=== PATIENT | female | born 1985 | race Caucasian/White ===

== ENCOUNTER → 2019-03-22 13:43 | Outpatient (CLI) | payer BC ==
[~2019-03-22 13:43] MED LIST: ALBUTEROL SULF8.5 GM INH; BUPROPION HCL75 MG PO; CIPRO500 MG PO; FLUTICASONE PRO16 GM NASAL; HYDROCHLOROTH12.5 M1 PO; IPRAT-ALBUT 0.5-3 ML UPD; MIRALAX17 GM PO; NORVASC2.5 MG PO; PRISTIQ100 MG PO; ULTRAM50 MG PO; VALIUM5 MG PO
== END | disposition home or self-care (01) ==
LOC: D.LABREF 13:43
PROVIDERS: ATTEND Urology
DX: N39.0 Urinary tract infection, site not specified (principal)

== ENCOUNTER 2019-03-31 06:25 | Day surgery (SDC) | payer BC ==
[2019-03-30 15:20] LABS: CALC OSMOLALITY 277 mosm/kg (275-300); CALCIUM 9.4 mg/dL (8.5-10.1); CARBON DIOXIDE 24.6 mmol/L (21.0-32.0); CHLORIDE - SERUM 103 mmol/L (98-107); CREATININE - SERUM 0.9 mg/dL (0.6-1.3); POTASSIUM - SERUM 3.8 mmol/L (3.5-5.1); SODIUM 140 mmol/L (136-145); UREA NITROGEN 14 mg/dL (7-18); eGFR NON AFRICAN AMERICAN 76 mL/min (90-120)
[2019-03-30 15:23] LABS: GLUCOSE 70 mg/dL (74-106)
[2019-03-30 15:24] LABS: HEMATOCRIT 43.6 % (36.0-48.0); HEMOGLOBIN 15.3 g/dL (12-16); MCH 29.5 pg (26.0-34.0); MCHC 35.1 g/dL (31.0-37.0); MCV 84.2 fL (80.0-100.0); MEAN PLATELET VOLUME 10.9 fL (7.4-10.4); RBC 5.18 10x6/uL (4.00-5.40); WBC 5.8 10x3/uL (4.8-10.8)
[~2019-03-31 06:25] MED LIST changes: -MIRALAX17 GM PO; -ULTRAM50 MG PO; -VALIUM5 MG PO
[2019-03-31 08:32] VITALS: BP 129/88; BMI 36.9
[2019-03-31 08:58] LABS: HCG URINE NEGATIVE (NEGATIVE)
[2019-03-31] MEDS ORDERED: VALIUM5 MG PO (10:35)
[2019-03-31] MEDS ORDERED: MIRALAX17 GM PO (10:35)
[2019-03-31] MEDS ORDERED: ULTRAM50 MG PO (10:38)
--- NOTE | 2019-03-31 11:15 | NUR ---
REC'D FROM RR. FAMILY AT BEDSIDE. [place] BROUGHT TO PATIENT. ORDERED A GLUTEN FREE FULL LIQUID DIET FOR PATIENT. VOIDED WHILE IN THE RR.
--- NOTE | 2019-03-31 11:45 | NUR ---
AMBULATED TO THE BATHROOM. VOIDED WITHOUT DIFFICULTY. CHOCOALATE ICE CREAM AND PUDDING BROUGHT TO PATIENT. FAMIOY AT BEDSIDE.
--- NOTE | 2019-03-31 12:15 | NUR ---
TOLERATED DIET. IV DC'D WITH CATHETER INTACT.
--- NOTE | 2019-03-31 12:20 | NUR ---
WRITTEN AND VERBAL DC INST. GIVEN TO PT. VERBALIZED UNDERSTANDING.
--- NOTE | 2019-03-31 12:35 | NUR ---
dc'd home with family via private VEHICLE. TAKEN TO VEHICLE BONI WC. STABLE AT TIME OF DC.
== END 2019-03-31 12:35 | disposition home or self-care (01) ==
LOC: D.OPS 06:25 → D.PAN 08:00 → D.OPS 08:15 → D.PAN 09:00 → D.OPS 09:00
PROVIDERS: Anesthesiology; ATTEND Surgery
DX: K64.5 Perianal venous thrombosis (principal); Z01.812 Encounter for preprocedural laboratory examination

== ENCOUNTER 2019-04-30 10:15 | Observation (INO) | payer BC ==
[2019-04-28 15:18] LABS: BASOPHILS 0.7 % (0-2); EOSINOPHILS 3.9 % (0-7); HEMATOCRIT 39.1 % (36.0-48.0); HEMOGLOBIN 13.5 g/dL (12-16); IMMATURE GRANULOCYTES 0.3 % (0-5); LYMPHOCYTES 26.4 % (15-50); MCHC 34.5 g/dL (31.0-37.0); MCV 83.9 fL (80.0-100.0); MEAN PLATELET VOLUME 11.1 fL (7.4-10.4); MONOCYTES 8.3 % (2-11); NEUTROPHILS 60.4 % (40-80); PLATELET COUNT 244 10x3/uL (130-400); RBC 4.66 10x6/uL (4.00-5.40); RDW 12.8 % (11.5-14.5); WBC 6.9 10x3/uL (4.8-10.8)
[2019-04-28 15:31] LABS: CALC OSMOLALITY 281 mosm/kg (275-300); CALCIUM 8.6 mg/dL (8.5-10.1); CARBON DIOXIDE 26.5 mmol/L (21.0-32.0); CHLORIDE - SERUM 104 mmol/L (98-107); CREATININE - SERUM 0.8 mg/dL (0.6-1.3); GLUCOSE 85 mg/dL (74-106); POTASSIUM - SERUM 3.6 mmol/L (3.5-5.1); SODIUM 142 mmol/L (136-145); UREA NITROGEN 13 mg/dL (7-18); eGFR NON AFRICAN AMERICAN 86 mL/min (90-120)
[~2019-04-30] VITALS: Ht 152.4 cm; Wt 85.9 kg
[2019-04-30] VITALS (11 sets, daily range): BP systolic 100–138; BP diastolic 42–98; Ht 152.4 cm; Wt 85.9 kg
[~2019-04-30 10:15] MED LIST changes: +MIRALAX17 GM PO; +ULTRAM50 MG PO; +VALIUM5 MG PO
[2019-04-30 10:44] LABS: HCG URINE NEGATIVE (NEGATIVE)
[2019-04-30] MEDS ORDERED: VITAMIN D5000 UNIT PO (10:50)
[2019-04-30] MEDS ORDERED: COLACE100 MG PO (10:50)
[2019-04-30] MEDS ORDERED: CYCLOBENZAPRINE10 MG PO (10:52)
--- NOTE | 2019-04-30 20:00 | NUR ---
PT ARRIVED ON UNIT VIA BED ESCORTED BY MARY SONG PACU NURSE. TEMP ELEVATED AT 100.4 DEGREES AND PULSE 128 AT THIS ASSESSMENT. DRESSINGS / PACKINGS INTACT WITH NO BLEEDING. IV IN LEFT HAND PATENT WITH LR INFUSING...CONTINUED AT 125 ML / HR PER ORDER.
--- NOTE | 2019-04-30 20:10 | NUR ---
STARTED PT USING INCINTIVE INSPIROMETER 10 TIMES PER HOUR. SCD'S PLACED ON BLE AND TURNED ON.
--- NOTE | 2019-04-30 20:22 | NUR ---
STARTED TRAIN SYSTEM OPERATOR W/ DILAUDID. PT TEACHING ON USE.
--- NOTE | 2019-04-30 20:30 | NUR ---
CALLED DR ELLINGTON TO REQUEST FLOMAX PER PT, AND TO REPORT ELEVATED TEMP. RECEIVED ORDER FOR FLOMAX QHS, XANAX 1 MG PO Q8 PRN, AND CBC W/DIFF TO BE DRAWN NOW.
--- NOTE | 2019-04-30 20:39 | NUR ---
HS MEDICATIONS GIVEN. GAVE SCHEDULED TYLENOL EARLY FOR ELEVATED TEMP.
--- NOTE | 2019-04-30 20:47 | OP ---
PATIENT NAME: SIVAN GARDNER MEDICAL RECORD: [id number] :84 LOCATION:D.MS [facility]argas2226 ADMISSION DATE:04/30/19 SURGEON: ROHIT RYAN MD DATE OF OPERATION: 04/30/2019 PRINCIPAL DIAGNOSES: 1. Intractable hemorrhoidal symptoms. 2. Third degree anal prolapse. POSTOPERATIVE DIAGNOSES: 1. Intractable hemorrhoidal symptoms. 2. Third degree anal prolapse. 3. Persistent prolapse of 2 hemorrhoidal bundles after the procedure for prolapse and hemorrhoids. PROCEDURE: 1. Procedure for prolapse and hemorrhoids. 2. ____ hemorrhoidectomy with closure. SURGEON: Rohti Ryan MD TILE SPRAYER: None. BLOOD LOSS: Less than 50 cc. ANESTHESIA: General. COMPLICATIONS: None. The risks, possible complications, and alternatives to the procedure were explained to the patient. She elects to proceed. The discussion specifically included, but was not limited to, bleeding requiring emergency reoperation, infection, recurrent hemorrhoidal symptoms. OPERATIVE COURSE: The patient was conveyed to the operating room electively on 04/30/2019. General anesthesia was induced by anesthesia staff. The patient was placed in lithotomy position. The buttocks were taped laterally. The buttocks and perineum were sterilely prepped and draped. A PPH dilator retractor was placed and the clear retractor was sutured to the surrounding anoderm with 2-0 silks. A mucosal pursestring suture of 2-0 Prolene was applied 1 cm cephalad to the clear retractor. The PPH stapling device was inserted with the anvils superior to the pursestring suture, which was then tightened and tied. The stapling device was engaged and then fired. There was a complete donut of lower rectal and hemorrhoidal tissue within the stapling device once it was removed. Bleeding along the anastomotic staple line was controlled with [id number] 3-0 Vicryls. At no time during this operation was there any apparent injury to the back wall of the vagina. The clear retractor was removed. There was still persistent prolapse of hemorrhoidal tissue at the 7 o'clock and 3 o'clock positions. At both sites, I placed a 3-0 Vicryl ligature at the apex of the internal hemorrhoids. Through the use of double curvilinear incisions, I excised the anoderm as well as the anal mucosa at both sites. The hemorrhoidectomies were conducted in a similar fashion at both sites. I swept down the sphincteric muscles and they were undamaged during the operation. The hemorrhoidectomies were performed utilizing the Harmonic scalpel. The anal mucosa was approximated with a running locking 3-0 Vicryl suture and then OPERATIVE REPORT [id number] SIVAN GARDNER continued out on to the anoderm with a running 3-0 Vicryl suture and then tied. I reinforced the anoderm suture line with multiple interrupted horizontal mattress 3-0 Vicryl Rapide sutures. A combination of sterile preparation and Marcaine were used to infiltrate the perianal tissues. Gelfoam was packed within the anus and lower rectum. A topical anesthetic cream was applied to the external hemorrhoids. Dr. Ellington then went about performing his gynecologic procedure. Once the patient was extubated in the recovery room, I saw her and her pain was controlled. TRANSINT:[id number] Voice Confirmation ID: [id number] DOCUMENT ID: [id number] ROHIT RYAN MD at 2047 CC: ESTRELLA ELLINGTON MD and JANE MCCORMICK MD [id number] DICTATION DATE: 04/30/191932 STEWARD/STEWARDESS LOUNGE: 04/30/192016 ADM IN [facility] [address] [place] [address]
[2019-04-30 20:53] LABS: BASOPHILS 0.1 % (0-2); EOSINOPHILS 0.1 % (0-7); HEMOGLOBIN 12.9 g/dL (12-16); IMMATURE GRANULOCYTES 0.4 % (0-5); MCH 29.1 pg (26.0-34.0); MCHC 34.9 g/dL (31.0-37.0); MCV 83.3 fL (80.0-100.0); MEAN PLATELET VOLUME 10.3 fL (7.4-10.4); MONOCYTES 1.9 % (2-11); NEUTROPHILS 92.5 % (40-80); PLATELET COUNT 230 10x3/uL (130-400); RBC 4.44 10x6/uL (4.00-5.40); RDW 12.9 % (11.5-14.5); WBC 13.1 10x3/uL (4.8-10.8)
--- NOTE | 2019-04-30 22:11 | NUR ---
GAVE XANAX 1 MG PO PER REQUEST. WILL CONTINUE TO MONITOR FOR NEEDS.
--- NOTE | 2019-04-30 22:43 | NUR ---
PT HAS HAD 360 ML OF WATER AND X2 POPSICLES SINCE ARRIVING ON FLOOR. NO C/O OF NAUSEA. URINE OUTPUT VERY GOOD WITH CLEAR YELLOW URINE IN VERDIN COLLECTION BAG.
[2019-05-01] VITALS (7 sets, daily range): BP systolic 82–131; BP diastolic 31–80
--- NOTE | 2019-05-01 00:41 | NUR ---
GAVE ZOFRAN 4 MG IVP PER REQUEST FOR NAUSEA. WILL CONTINUE TO MONITOR FOR NEEDS.
--- NOTE | 2019-05-01 07:55 | NUR ---
PT SITTING UP IN BED, EYES OPEN. NO C/O PAIN. DILAUDID TAPE MAKING MACHINE OPERATOR MANAGING PAIN. NO S/S OF ACUTE DISTRESS NOTED. PT UP WITH ASSIST. POD 1 LAP HYSTERECTOMY AND HEMRROID BANDING. SCD'S PRESENT. IV TO LEFT HAND, LR INFUSING @125ML/HR. VERDIN CATHETER PRESENT. PT DENIES ANYTHING FURTHER AT THIS TIME. CALL LIGHT IN REACH. WILL CONTINUE TO MONITOR.
--- NOTE | 2019-05-01 11:02 | NUR ---
I have reviewed this patient and I concur with the Shift Assessment completed by the Licensed Practical Nurse today this shift.
--- NOTE | 2019-05-01 13:52 | NUR ---
DISCONTINUED VERDIN PER PHYSICIAN ORDERS
[2019-05-01 13:54] LABS: BASOPHILS 0.2 % (0-2); EOSINOPHILS 0.7 % (0-7); HEMATOCRIT 34.6 % (36.0-48.0); HEMOGLOBIN 11.6 g/dL (12-16); IMMATURE GRANULOCYTES 0.3 % (0-5); LYMPHOCYTES 11.4 % (15-50); MCH 28.8 pg (26.0-34.0); MCHC 33.5 g/dL (31.0-37.0); MEAN PLATELET VOLUME 10.5 fL (7.4-10.4); MONOCYTES 10.2 % (2-11); NEUTROPHILS 77.2 % (40-80); PLATELET COUNT 221 10x3/uL (130-400); RBC 4.03 10x6/uL (4.00-5.40); RDW 13.1 % (11.5-14.5); WBC 11.1 10x3/uL (4.8-10.8)
[2019-05-01 13:56] LABS: MCV 85.9 fL (80.0-100.0)
--- NOTE | 2019-05-01 18:54 | NUR ---
PT RESTING IN BED, C/O PAIN. UNABLE TO GIVE PAIN MEDS AT THIS TIME. GAVE OXY 10 @ 1730. NO S/S OF ACUTE DISTRESS NOTED. PT STATES SHE NEEDS A STOOL SOFTNER OR MIRALAX. WILL NOTIFY PHYSICIAN. PT DENIES ANYTHING FURTHER AT THIS TIME. CALL LIGHT IN REACH. AT BEDSIDE. WILL CONTINUE TO MONITOR.
--- NOTE | 2019-05-01 19:00 | NUR ---
REPORT RECEIVED AND CARE OF PT ASSUMED. PT AMBULATING IN THE HALLWAY WITH HER SPOUSE AT THIS TIME. IV SALINE LOCKED. WILL MONITOR FOR NEEDS.
--- NOTE | 2019-05-01 20:30 | NUR ---
PT AMBULATING IN THE HALLWAY AT THIS TIME. REPORTS URINATING WITHOUT DIFFICULTY AND PASSING GAS.
--- NOTE | 2019-05-01 21:12 | NUR ---
HS MEDICATIONS GIVEN TO INCLUDE AMBIEN 10 MG PO PER REQUEST, PER PRN ORDER. WILL CONTINUE TO MONITOR FOR NEEDS.
[2019-05-02 04:36] VITALS: BP 130/86
--- NOTE | 2019-05-02 08:07 | NUR ---
PT UP WALKING AROUND WITH SPOUSE. ASKED FOR ICE PACK AND STATED SHE SHOULD BE GOING HOME TODAY. CONTINUE WITH PLAN OF CARE
[2019-05-02 08:51] VITALS: BP 135/91
--- NOTE | 2019-05-02 10:19 | NUR ---
PT UP ADLIB. PT SPOUSE AT BEDSIDE ASSISTING WITH PERSONAL NEEDS. PT IS PENDING DC NO OTHER NEEDS VOICED, CONTINUE WITH PLAN OF CARE
[2019-05-02] MEDS ORDERED: VALIUM5 MG PO (11:56)
[2019-05-02] MEDS ORDERED: IBUPROFEN800 MG PO (11:57)
[2019-05-02] MEDS ORDERED: PERCOCET 7.5/321 TAB PO (11:58)
[2019-05-02] MEDS ORDERED: PHENERGAN25 M1 PO (12:28)
== END 2019-05-02 12:59 | disposition home or self-care (01) ==
LOC: D.OPS 10:15 → D.PAN 12:00 → D.OPS 12:00 → D.MS 19:50 → OBSVTIME 19:50 → D.MS 05-02 12:59
PROVIDERS: Obstetrics & Gynecology; ADMIT Obstetrics & Gynecology; ATTEND Obstetrics & Gynecology
DX: K64.2 Third degree hemorrhoids (principal); N94.6 Dysmenorrhea, unspecified; N81.6 Rectocele; N92.0 Excessive and frequent menstruation with regular cycle

== ENCOUNTER 2019-05-22 00:23 | Observation (INO) | payer BC ==
[~2019-05-22 00:23] MED LIST changes: +COLACE100 MG PO; +CYCLOBENZAPRINE10 MG PO; +IBUPROFEN800 MG PO; +PERCOCET 7.5/321 TAB PO; +PHENERGAN25 M1 PO; +VITAMIN D5000 UNIT PO
--- NOTE | 2019-05-22 00:50 | NUR ---
RECEIVED PT TO FLOOR VIA WHEELCHAIR. BRIGHT RED BLOOD WITH HEAVY CLOTS COMING FROM VAGINA. ASSISTED PT TO GET CLEANED UP. STARTING PAD COUNT. IV STARTED TO LEFT AC. PT C/O LOWER ABDOMINAL PAIN 8/[address] HANCOCK FOR ORDERS. GAVE TORADOL AND ZOFRAN IV PUSH. CONSENTS OBTAINED FOR EXAM UNDER ANESTHESIA. PRE OP MEDS GIVEN AND ALLERGY BAND ON. PT LEAVING UNIT FOR OR.
[2019-05-22] MEDS ORDERED: PRISTIQ50 MG PO (01:00)
[2019-05-22] MEDS ORDERED: HYDROCODON-ACE1 EAC7 PO (01:03)
[2019-05-22 01:04] LABS: BASOPHILS 0.2 % (0-2); EOSINOPHILS 1.2 % (0-7); HEMATOCRIT 36.5 % (36.0-48.0); HEMOGLOBIN 12.4 g/dL (12-16); IMMATURE GRANULOCYTES 0.3 % (0-5); LYMPHOCYTES 14.6 % (15-50); MCH 29.1 pg (26.0-34.0); MCV 85.7 fL (80.0-100.0); MEAN PLATELET VOLUME 10.1 fL (7.4-10.4); MONOCYTES 6.3 % (2-11); NEUTROPHILS 77.4 % (40-80); PLATELET COUNT 356 10x3/uL (130-400); RBC 4.26 10x6/uL (4.00-5.40); RDW 13.8 % (11.5-14.5); WBC 14.5 10x3/uL (4.8-10.8)
[2019-05-22] MEDS ORDERED: THEREMS-M1 TAB PO (01:05)
[2019-05-22 02:47] VITALS: BP 126/85; BMI 37.1
[2019-05-22 04:55] VITALS: BP 128/77
--- NOTE | 2019-05-22 04:55 | NUR ---
RECEIVED PT BACK TO ROOM FROM RECOVERY. POST OP STABILITY VITALS WNL. PT ON 2L/NC. VERDIN CATH PLACED IN OR. PT SLIGHTLY DROWSY RATES PAIN 7/10, STATES PAIN IS DECREASING. PLACED SCD'S ON PT. IV FLUIDS INFUSING. NO OTHER NEEDS. WILL CONTINUE TO MONITOR.
--- NOTE | 2019-05-22 07:57 | OP ---
PATIENT NAME: SIVAN GARDNER MEDICAL RECORD: [id number] :84 LOCATION:D.MS Vargas2215 ADMISSION DATE:05/22/19 SURGEON: ESTRELLA ELLINGTON MD DATE OF OPERATION: 05/22/2019 PREOPERATIVE DIAGNOSIS: Vaginal bleeding. POSTOPERATIVE DIAGNOSES: 1. Breakdown of vaginal incision. 2. Vaginal bleeding. PROCEDURE: Repair of vaginal colpotomy. SURGEON: Estrella Ellington MD BEE BREEDER: Rahat Puga. ANESTHETIC: General. FINDINGS: At the time of exam under anesthesia, the cervix is noted to be dilated with a large old clot present. There is bleeding from previous colpotomy and the stitch is torn free of this. The tissue was necrotic posteriorly and devitalized. SPECIMENS REMOVED: None applicable. ESTIMATED BLOOD LOSS: Less than or equal to 150 cc. FLUIDS: 700 cc lactated Ringer's. URINE OUTPUT: 50 of clear urine. COMPLICATIONS: None. DRAIN: Schaefer to gravity. INDICATIONS: The patient is a 34-year-old female who is status post subtotal hysterectomy and posterior repair with hemorrhoidectomy 2 weeks out. The patient began increasing her activity level and developed vaginal bleeding earlier in the day. The patient's bleeding increased throughout the evening and presents to the ER with passing large clots. DESCRIPTION OF PROCEDURE: After informed consent was assured, the patient was taken to the operating room where anesthetic was obtained. The patient was placed in Yellofin stirrups and prepped and draped. An operative speculum was introduced in the vagina and the cervix visualized. Previous side of posterior colpotomy was placed into full view. Stitches noted to be torn from this. There was active bleeding from the site. The posterior cervix is necrotic. This is removed. Gelfoam was placed in the defect and the defect was closed with #1 chromic in a running locked fashion. After closure of the colpotomy and reapproximation of the posterior cervical tissue, the vagina is packed with Kerlix covered with Premarin cream. The Schaefer catheter started. Sponge count was correct times 2. TRANSINT:[id number] Voice Confirmation ID: [id number] DOCUMENT ID: [id number] OPERATIVE REPORT [id number] SIVAN GARDNER ESTRELLA ELLINGTON MD at 0757 CC: [id number] DICTATION DATE: 05/22/19 0358 [place] OPERATOR: 05/22/19 0504 ADM IN [facility] [address] [facility]
[2019-05-22 09:12] LABS: BASOPHILS 0.1 % (0-2); EOSINOPHILS 0 % (0-7); HEMATOCRIT 32.3 % (36.0-48.0); HEMOGLOBIN 10.8 g/dL (12-16); IMMATURE GRANULOCYTES 0.5 % (0-5); LYMPHOCYTES 4.8 % (15-50); MCH 28.9 pg (26.0-34.0); MCHC 33.4 g/dL (31.0-37.0); MCV 86.4 fL (80.0-100.0); MONOCYTES 2.4 % (2-11); NEUTROPHILS 92.2 % (40-80); PLATELET COUNT 289 10x3/uL (130-400); RBC 3.74 10x6/uL (4.00-5.40); RDW 13.9 % (11.5-14.5); WBC 16.5 10x3/uL (4.8-10.8)
--- NOTE | 2019-05-22 10:19 | NUR ---
PT LYING IN BED WITH SPOUSE AT [facility], PT STATED PAIN IS AT A 10. ADMINISTERED 2MG PRN PAIN MEDICATION. PT REQUESTED TO HAVE ANXIETY MEDS, CALLED DR ELLINGTON AND RECEIVED ORDER FOR XANAX. O OTHER NEEDS VOICED, CONTINUE WITH PLAN OF CARE
[2019-05-22 12:59] VITALS: BP 125/70
[2019-05-22 16:28] VITALS: BP 113/69
--- NOTE | 2019-05-22 18:30 | NUR ---
I have reviewed this patient and I concur with the Shift Assessment completed by the Licensed Practical Nurse today this shift.
[2019-05-22 20:00] VITALS: BP 144/88
[2019-05-23] VITALS: BP 131/70
--- NOTE | 2019-05-23 03:00 | NUR ---
I have reviewed this patient and I concur with the Shift Assessment completed by the Licensed Practical Nurse today this shift.
--- NOTE | 2019-05-23 03:14 | NUR ---
RESITED PT IV PER PT REQUEST. ATTEMPTS TIMES ONE. 20G RT FA. WILL CONTINUE FLUIDS.
[2019-05-23 04:00] VITALS: BP 130/65
[2019-05-23 09:19] VITALS: BP 145/70
[2019-05-23 12:55] VITALS: BP 125/77
[2019-05-23 17:28] VITALS: BP 129/72
[2019-05-23 20:00] VITALS: BP 132/87
--- NOTE | 2019-05-23 20:00 | NUR ---
ALERT SITTING UP IN BEDFAMILY AT BEDSIDE, REPORTS MINIMAL VAGINAL BLEEDING TODAY, UP AMBULATING IN HALLWAY, SEE SHIFT ASSESSMENT, CALL MICHAEL AQUINO
--- NOTE | 2019-05-24 07:02 | NUR ---
PREOP MEDS GIVEN ORDERED, TO OR VIA BED
--- NOTE | 2019-05-24 09:19 | NUR ---
X-RAY TAKEN POST OP FOR INSTRUMENT, SPONGES NEEDLES AND BLADES CORRECT, X-RAY TAKEN AND READ NO SPONGES, NEEDLES ,BLADES, OR INSTRUMENTS SEEN PER RADIOLOGIST, DR HAILE LLOYDIEDJESUS.
--- NOTE | 2019-05-24 10:43 | NUR ---
LATE ENTRY-PATIENT PUT UP IN LITHOTOMY AFTER START ALL AREAS PADDED AND SECURED WITH NO IMPINGEMENTS, DR ELLINGTON ASSISTING WITH POSITION, JESUS.
--- NOTE | 2019-05-24 10:45 | NUR ---
AT 1020 CONSULTED ANESTHESIA REGARDING PAIN LEVEL OF 8/10 AFTER RECEIVING DEMEROL 100MG. VERBAL ORDERS RECEIVED FROM DR. HOLLAND TO ADMINISTER DILAUDID ORDERED. ORDERS RECEIVED AND IMPLEMENTED. WILL CONTINUE TO MONITOR.
[2019-05-24 11:35] VITALS: BP 139/86
--- NOTE | 2019-05-24 11:50 | NUR ---
DR ELLINGTON CALLS UNIT REQUESTING PATIENT BE TRANSFERED TO FOR REMAINDER OF STAY IN HOSPITAL. THIS RN CALLS MS FLOOR TO INFORM STAFF OF DR ELLINGTON'S ORDER. PRIMARY NURSE TO RETURN CALL TO GIVE REPORT AND TRANSPORT PATIENT.
--- NOTE | 2019-05-24 12:33 | NUR ---
REC'D PT AA&O X 4 TO ROOM 1222. THIS RN AND A ADRIANO RN TO BEDSIDE. PT ABLE TO REPORT THE PROCEDURE THAT SHE HAD TODAY. CERVIX REMOVED PER DR ELLINGTON. PAIN ASSESSED. PT CURRENTLY RATES PAIN 6-06/09. PT REPORTS SHE HAS JUST RECENTLY MEDICATED FOR HER PAIN. PT HAS A SALINE LOCK TO LEFT HAND. VERDIN CATH IN PLACE W/APPROX 200ML NOTED IN BAG.
--- NOTE | 2019-05-24 12:44 | NUR ---
housesupervisor called for suicide assessment by behavioral health nurse. this rn to remain at bedside. pt aa&o x in bed. pt reports thoughts of suicide was more than 10years ago. pt doesn't currently have any suicide thoughts. pt currently has 2 supportive parents at bedside.
--- NOTE | 2019-05-24 12:55 | NUR ---
THIS RN REMAINS AT BEDSIDE TO MONITOR PATIENT UNTIL BEHAVIORAL HEALTH NURSE ARRIVES FOR ASSESSMENT. PT AA&O AND AND TALKATIVE. PT IS CHEERFUL.
--- NOTE | 2019-05-24 13:00 | NUR ---
RAYNA, BEHAVIORAL HEALTH NURSE AT BEDSIDE AT THISTIME.
--- NOTE | 2019-05-24 13:00 | NUR ---
PT'S NURSE PRESENT UPON ARRIVAL FOR SUICIDE ASSESSMENT. DR. ASHLEY NOTIFIED AND REVIEWED PT'S BEHAVIOR AND ASSESSMENT RESULTS. PT IS A LOW RISK DR. ASHLEY. DR. ASHLEY STATED TO GIVE RESOURCES TO PT AT TIME OF DISCHARGE. NO FURTHER ORDERS AT THIS TIME. RESOURCES REVIEWED WITH PT AND SHE VERBALIZED UNDERSTANDING.
--- NOTE | 2019-05-24 13:25 | NUR ---
PT INFORMED THIS NURSE OF HOME MEDICATIONS NEEDED. PRISTIQ 150MG PO DAILY AND WELLBUTRIN 225MG PO BID. THIS NURSE NOTIFIED PT'S NURSE SUZIE HERNANDEZ OF MEDICATIONS REPORTED.
[2019-05-24 15:03] LABS: CALC OSMOLALITY 282 mosm/kg (275-300); CARBON DIOXIDE 28.1 mmol/L (21.0-32.0); CHLORIDE - SERUM 106 mmol/L (98-107); CREATININE - SERUM 0.9 mg/dL (0.6-1.3); GLUCOSE 126 mg/dL (74-106); POTASSIUM - SERUM 3.4 mmol/L (3.5-5.1); SODIUM 142 mmol/L (136-145); UREA NITROGEN 6 mg/dL (7-18); eGFR NON AFRICAN AMERICAN 75 mL/min (90-120)
--- NOTE | 2019-05-24 15:15 | NUR ---
dr. calzada notified of pt's home medication of pristiq, and wellbutrin. telephone order received to add to medication list to start now. spoke with ivy in the pharmacy, medications ordered. pt notified.
[2019-05-24 15:17] LABS: BASOPHILS 0.1 % (0-2); EOSINOPHILS 0 % (0-7); HEMATOCRIT 25.5 % (36.0-48.0); HEMOGLOBIN 8.3 g/dL (12-16); IMMATURE GRANULOCYTES 0.4 % (0-5); LYMPHOCYTES 5.6 % (15-50); MCH 28.5 pg (26.0-34.0); MCHC 32.5 g/dL (31.0-37.0); MCV 87.6 fL (80.0-100.0); MEAN PLATELET VOLUME 9.8 fL (7.4-10.4); MONOCYTES 5.4 % (2-11); NEUTROPHILS 88.5 % (40-80); PLATELET COUNT 243 10x3/uL (130-400); RBC 2.91 10x6/uL (4.00-5.40); RDW 14.1 % (11.5-14.5); WBC 15.2 10x3/uL (4.8-10.8)
--- NOTE | 2019-05-24 15:20 | NUR ---
verbal order received from dr. calzada to stop levaquin as md will change iv antibiotics to clindamycin, and gentamycin, and pt to remain on flagyl iv.
--- NOTE | 2019-05-24 15:24 | OP ---
PATIENT NAME: SIVAN GARDNER MEDICAL RECORD: [id number] :84 [facility] ADMISSION DATE:05/22/19 SURGEON: AVI ELLINGTON MD DATE OF OPERATION: 05/24/2019 PREOPERATIVE DIAGNOSIS: Vaginal bleeding, status post hysterectomy. POSTOPERATIVE DIAGNOSES: 1. Vaginal bleeding, status post hysterectomy. 2. Devascularized cervical tissue. SURGEON: Avi Ellington MD SOLAR PROJECT MANAGER: Neno Tirado ENTERER: Dayan Garcia ANESTHESIOLOGIST: Prateek Kerns MD ANESTHETIC: General. FINDINGS: The vaginal cervix appeared unremarkable. There was some active bleeding noted, but not heavy. At the time of ex lap, necrotic tissue encountered at the cervical stump. Rectum was inflamed as well as bladder. SPECIMEN REMOVED: Portions of cervix. SPECIMEN DISPOSITION: Pathology. ESTIMATED BLOOD LOSS: Less than or equal to 150 cc. FLUIDS: One liter lactated Ringer's. URINE OUTPUT: 110 cc of clear urine. COMPLICATION: None. DRAIN: Schaefer to gravity. INDICATION: The patient is a 34-year-old female status post subtotal hysterectomy, posterior repair, and hemorrhoidectomy. The patient was taken to the operating room 48 hours ago for continued bleeding and a necrotic tissue debrided from the cervix and this defect closed. The patient has had continued bleeding, although not heavy over the last 48 hours. The patient is concerned about heavy bleeding in the future and requests removal of the cervix. DESCRIPTION OF PROCEDURE: After informed consent was assured, the patient was taken to the operating room, where anesthetic was obtained. The patient was prepped and draped supine on the table. An incision was made over the old Pfannenstiel scar and taken down to the underlying layer of the fascia, which was opened and extended laterally. Rectus bellies were dissected free of the fascia and then in the midline. The bowel was swept free of the pelvis and some adhesions of the bowel and the bladder to the cervical stump was encountered and these were taken down. The cervical stump was inspected and was inflamed with abundance of necrotic tissue. The decision was made to place the OPERATIVE REPORT [id number] SIVAN GARDNER patient in [facility] and perform part of the procedure from below. During manipulation of the table, the OR setup was flipped and the instruments contaminated. Another setup was organized as the legs were positioned and draped. Due to contamination of the instruments and a second setup being brought in before count could be performed, an x-ray was performed at the end of this procedure. After the legs were positioned, a weighted speculum was introduced in the vagina and the cervix was visualized. Minimal bleeding was noted. There was viable tissue anteriorly and this was grasped with Palomares tenaculum. Using a Bovie cautery, the bladder mucosa was mobilized over the cervical stump. The anterior space was entered easily with the blunt finger, opening the prior repair from the previous debridement. A stump on the patient's left hand side was developed and clamped with a Mauricio clamp. This was removed with scissors and a ppcd-sun-gjc stitch was applied for hemostasis. This was repeated on the contralateral side with what remained of the right anterior portion of the cervix. After it was removed, interrupted [id number]-[id number] stitches were used to reapproximate the vaginal cuff. Some bleeding was noted from the mucosal edges and the vagina was packed with a sponge. Attention was directed to the abdomen, where the necrotic tissue was debrided and the pelvis was irrigated and irrigant was removed. Adequate hemostasis has been achieved. Antibiotic irrigant was used to irrigate the pelvis. The irrigant was removed and the fascia was closed in a running fashion with looped PDS. Subcutaneous tissue was inspected and skin was reapproximated with mirian. The sponge was removed from the vagina and adequate hemostasis has been achieved at the vaginal cuff. Monsel's solution was applied. Sponge count was correct times 2. X-ray revealed no retained instruments. TRANSINT:[id number] Voice Confirmation ID: [id number] DOCUMENT ID: [id number] AVI ELLINGTON MD at 1524 CC: [id number] DICTATION DATE: 05/24/19 0935 AUTO BRAKE MECHANIC: 05/24/19 1245 [facility] IN [facility] [address] [place] [address]
--- NOTE | 2019-05-24 16:24 | NUR ---
pt tearful, and requests pain medication, demerol 50 mg sivp given. see emar for all meds adm by this rn. pink pad changed, pt does not like the blue chux. pt repositions self in bed to right lateral side. pt does coughing and deep breathing exercises well. pt's mother at bedside. sr up x2, call light and phone within reach.
--- NOTE | 2019-05-24 16:42 | NUR ---
clindamycin 900 mg ivpb adm, see emar.
--- NOTE | 2019-05-24 18:00 | NUR ---
pt requests to get up to the bathroom to sit on the toilet, to "try and pass some gas, i promise i won't strain". pt assisted up, gait slow and steady. ruth cath continues to drain light yellow urine. pt then ambulatory in hallway, pt smiling and states "i really do feel so much better". pt's mother walking with her daughter.
--- NOTE | 2019-05-24 18:20 | NUR ---
pt back to room, back to bed. sr up x2, call light and phone within reach. family at bedside.
--- NOTE | 2019-05-24 19:45 | NUR ---
PM ROUNDS MADE, PT RESTING, INFORMED PT THAT I WILL BE BACK SHORLTY TO DO ASSESSMENT, PT VERBALIZES UNDERSTANDING, REPORTS THAT PREVIOUS NURSE WAS IN AND ADM TORADOL, PT DENIES NEEDS AT THIS TIME, PT'S MOM AT BEDSIDE
[2019-05-24 20:20] VITALS: BP 139/93
--- NOTE | 2019-05-24 20:40 | NUR ---
ASSESSMENT PER FLOW SHEET, VS OBTAINED PER ODESSA BEE RN, IV IN RIGHT WRIST INTACT WITH NO REDNESS OR EDEMA INFUSING LR AT 125 ML/HR, BIKINI LINE INC WITH LARGE DRESSING CDI WITH NO DRAINAGE NOTED, FRESH ICE PACK TO ABD, PT DENIES FLATUS, VERDIN CATH INTACT DRAINING CLEAR YELLOW URINE, SCD'S ON AND WORKING PROPERLY, PT C/O INC PAIN, WILL ADM PAIN MED WHEN DUE, SEE EMAR, PT REQUESTED AND SERVED POPSICLE, DENIES FURTHER NEEDS, PT'S MOM AT BEDSIDE
--- NOTE | 2019-05-24 21:39 | NUR ---
ADM SOME 2100 MEDS PER MD ORDERS, SEE EMAR, INFORMED PT THAT I WILL ADM THE OTHERS WHEN RECEIVED, PT VERBALIZES UNDERSTANDING, PT'S MOM AT BEDSIDE
--- NOTE | 2019-05-24 21:55 | NUR ---
DR DOSS PAGED
--- NOTE | 2019-05-24 21:57 | NUR ---
DR DOSS CALLS UNIT, REPORT OF PT'S H&H FROM EARLIER TODAY, ORDERS TO TRANSFUSE 1 UNIT OF PRBC AND REPEAT CBC IN AM, ORDERS READ BACK AND VERIFIED
--- NOTE | 2019-05-24 22:06 | NUR ---
RECEIVED OTHER MEDS FROM PHARMACY, ADM, PT INFORMED OF BLOOD TRANSFUSION, PT GOT SLIGHTLY TEARY EYED, REASSURED PT, INFORMED PT THAT SOMEONE WILL COME AND START ANOTHER IV, PT VERBALIZES UNDERSTANDING, CONSENT ON CHART
--- NOTE | 2019-05-24 22:15 | NUR ---
SPOKE TO NELLY PERDOMO LAB NURSE, SHE INFORMED ME THAT THE BLOOD CONSENT IS GOOD FOR 3 DAYS
--- NOTE | 2019-05-24 22:30 | NUR ---
GINA MCKENNA RN WILL COME TO START NEW IV
--- NOTE | 2019-05-24 22:50 | NUR ---
BRET THOMPSON RN TO ROOM FOR IV START, UNABLE TO START IV X 2 ATTEMPTS, WILL NOTIFY ICU
--- NOTE | 2019-05-24 23:10 | NUR ---
SPOKE TO MIKIE RN IN ICU, HE REPORTS THAT HE WILL SEND SOMEONE DOWN TO ATTEMPT IV
--- NOTE | 2019-05-24 23:48 | NUR ---
CALLED ICU, SPOKE TO NURSE UP THERE, SHE INFORMED ME THAT THEY WILL NOT HAVE TIME TO START AN IV DUE TO A RAPID RESPONS
--- NOTE | 2019-05-24 23:52 | NUR ---
CALLED ER, NURSE REPORTS THAT SHE WILL SEND SOMEONE DOWN TO START IV
[2019-05-25] VITALS (7 sets, daily range): BP systolic 101–133; BP diastolic 66–88
--- NOTE | 2019-05-25 00:03 | NUR ---
CLEOCIN HUNG PER MD ORDERS, SEE EMAR
--- NOTE | 2019-05-25 00:20 | NUR ---
GINA MCKENNA RN REPORTS THAT NURSE FROM ED WILL NOT BE ABLE TO COME AND ATTEMPT IV, GINA MCKENNA RN TO ROOM TO SEE IF SHE CAN START IV, GINA MCKENNA RN REPORTS THAT SHE WILL NOT BE ABLE TO START IV, SHE WILL CALL CODER
--- NOTE | 2019-05-25 00:50 | NUR ---
CALLED CORINA RECIO RNVP SOFTWARE SUPPORT, SHE ASKS ME TO SEE IF MARY TONG FROM [facility] WILL COME
--- NOTE | 2019-05-25 01:02 | NUR ---
MARY TONG FROM [facility] TO ROOM
--- NOTE | 2019-05-25 01:12 | NUR ---
MARY TONG FROM [facility] REPORTS THAT SHE DOES NOT SEE ANY PLACE TO START AN IV
--- NOTE | 2019-05-25 01:30 | NUR ---
SPOKE TO PT, WILL ADM PAIN MED AT 0200, THEN INITIATE PRBC
--- NOTE | 2019-05-25 02:02 | NUR ---
ADM DEMEROL PER MD ORDERS, SEE EMAR
--- NOTE | 2019-05-25 02:06 | NUR ---
GINA MCKENNA RN CHANGED OUT LR TO NS FOR BLOOD INFUSION
--- NOTE | 2019-05-25 02:15 | NUR ---
THIS RN AND GINA MCKENNA RN VERIFY BLOOD, PRBC STARTED, GINA MCKENNA RN STAYS IN ROOM AT THIS TIME
--- NOTE | 2019-05-25 02:20 | NUR ---
GINA MCKENNA, RN ADM TAWANNA PER MD ORDERS, SEE EMAR
--- NOTE | 2019-05-25 02:45 | NUR ---
THIS RN TO ROOM, VS CONTINUE, PT RESTING, PT'S MOM AT BEDSIDE
--- NOTE | 2019-05-25 03:15 | NUR ---
PT RESTING WITH EYES CLOSED, RESP QUIET, NO DISTRESS NOTED, LEFT UNDISTURBED AT THIS TIME, PT'S MOM AT BEDSIDE
--- NOTE | 2019-05-25 04:00 | NUR ---
PT RESTING WITH EYES CLOSED, RESP QUIET, NO DISTRESS NOTED, LEFT UNDISTURBED AT THIS TIME, PT'S MOM ASLEEP AT BEDSIDE
--- NOTE | 2019-05-25 04:45 | NUR ---
PRBC FINISHED INFUSING, NS RESTARTED TO FLUSH OUT LINE
--- NOTE | 2019-05-25 04:56 | NUR ---
NS STOPPED, LR RESTARTED PER MD ORDERS, SEE EMAR, PT C/O INC PAIN, ADM DEMEROL PER MD ORDERS, SEE EMAR
--- NOTE | 2019-05-25 05:38 | NUR ---
PT AMB IN CABRAL, GAIT STEADY, PT'S MOM AT SIDE, PT BACK TO BED, REPORTS THAT PAIN IS NOT ANY BETTER AND REQUESTS NORCO, ADM NORCO, MYLICON, AND HUNG CLINDAMYCIN PER MD ORDERS, SEE EMAR
--- NOTE | 2019-05-25 06:45 | NUR ---
PT RESTING WITH EYES CLOSED, RESP QUIET, NO DISTRESS NOTED, LEFT UNDISTURBED AT THIS TIME, PT'S MOM ASLEEP AT BEDSIDE
--- NOTE | 2019-05-25 07:00 | NUR ---
SHIFT REPORT TO DAY SHIFT
--- NOTE | 2019-05-25 07:25 | NUR ---
dr. calzada to room, plan of care explained to pt by .
[2019-05-25 07:45] LABS: BASOPHILS 0.2 % (0-2); EOSINOPHILS 0.8 % (0-7); HEMATOCRIT 28.7 % (36.0-48.0); HEMOGLOBIN 9.5 g/dL (12-16); IMMATURE GRANULOCYTES 0.4 % (0-5); LYMPHOCYTES 15.4 % (15-50); MCH 29.1 pg (26.0-34.0); MCHC 33.1 g/dL (31.0-37.0); MCV 87.8 fL (80.0-100.0); MEAN PLATELET VOLUME 9.5 fL (7.4-10.4); NEUTROPHILS 74.2 % (40-80); PLATELET COUNT 218 10x3/uL (130-400); RBC 3.27 10x6/uL (4.00-5.40); RDW 14.4 % (11.5-14.5)
[2019-05-25 07:48] LABS: WBC 11.3 10x3/uL (4.8-10.8)
--- NOTE | 2019-05-25 09:05 | NUR ---
am assessment completed. see flowsheet.
--- NOTE | 2019-05-25 09:30 | NUR ---
ruth cath removed with 1500mls yellow urine out. perineum intact, no swelling, bruising, or vag bleeding noted.
--- NOTE | 2019-05-25 09:45 | NUR ---
pt reports pain and swelling to iv site, and upper right forearm. ivfs stopped, no blood return. iv d/c'd with cath intact. dr. millie green md returns call per pt's request, pt states "i only want dr. pinto to come and talk to me, everyone in the house tried to start my iv last night and could not get it".
--- NOTE | 2019-05-25 10:00 | NUR ---
pt up to br, gait slow and steady. call light within reach.
--- NOTE | 2019-05-25 10:45 | NUR ---
pt up to shower, clean linens provided, peripanties on, bed linens changed. pt's mother remains in room with her. srup x2, call light and phone within reach.
--- NOTE | 2019-05-25 11:00 | NUR ---
dr. calzada on unit, report given to md that iv has been dc'd due to pain and swelling in forearm, and at pt's request and dr. pinto has been consulted to evaluate for iv access. dr. calzada will d/c all ivf's/meds at this time.
--- NOTE | 2019-05-25 11:05 | NUR ---
pt reports she voided a "large amount while in the shower".
--- NOTE | 2019-05-25 11:40 | NUR ---
dr. pinto in room speaking with pt regarding iv access. orders checked, and dr. calzada has dc'd all ivf/meds. dr. pinto speaking with ayo to let her know if iv access is needed, to call him.
--- NOTE | 2019-05-25 12:24 | NUR ---
pt ambulatory in [facility], see emar for med adm. 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 pts mother is with her for this visit.
--- NOTE | 2019-05-25 12:30 | NUR ---
pt up to br, voids 200 ml's in [place] hat, dark yellow urine noted. no bright red bleeding.
--- NOTE | 2019-05-25 13:30 | NUR ---
pt back to unit by wheelchair to room to eat lunch. regular gluten free lunch. pt's mother remains at her side. pt denies all needs at this time.
--- NOTE | 2019-05-25 14:00 | NUR ---
to pt's room, pt is sitting up in the bed, visiting with her mother. pt states "i feel like a new woman". incentive spirometer provided to pt with instructions on use, and pt demonstrates well. abdominal pillow provided for coughing and deep breathing exercises. pt demonstrates well. pt denies all needs at this time. srup x2, call light and phone within reach.
--- NOTE | 2019-05-25 17:30 | NUR ---
pt ambulatory to cafeteria with her mother at her side, pt pushing wheelchair, and will use w/c as needed for trip to cafeteria. pt denies all needs at this time.
--- NOTE | 2019-05-25 18:00 | NUR ---
pt back to unit, and to room to rest.
--- NOTE | 2019-05-25 19:20 | NUR ---
PT AMB IN CABRAL, GAIT STEADY, WITH PT'S MOM AT SIDE, INFORMED PT THAT I WILL DO ASSSESSMENT WHEN SHE GETS BACK TO ROOM, PT VERBALIZES UNDERSTANDING
--- NOTE | 2019-05-25 19:45 | NUR ---
PT IN ROOM, LAYING IN BED, ASSESSMENT PER FLOW SHEET, VS OBTAINED, BIKINI INC WITH BRIDGETTE CDI WITH NO DRAINAGE NOTED, SHI PAD OVER INC FOR COMFORT AND MOISTURE CONTROL, PT REPORTS FLATUS, BM TODAY AND VOIDING WITH NO DIFFICULTY, REPORTS VERY SCANT VAG BLEEDING AT TIMES, STATES "IT'S JUST MAINLY, MAYBE A DIME SIZE, WHEN I WIPE", PT INST ON SHI CARE, PT VERBALIZES UNDERSTANDING, RATES INC PAIN 6-07/10, INFORMED PT THAT I WILL ADM PAIN MED WHEN DUE, PT VERBALIZES UNDERSTANDING, REQUESTED AND PROVIDED BLANKET, 2 SHEETS, AND BOTTOM SHEET TO PT'S MOM, AND SHI PANTIES TO PT, PT DENIES FURTHER NEEDS
--- NOTE | 2019-05-25 20:45 | NUR ---
PT WATCHING TV, ADM NOA PER MD ORDERS, SEE EMAR
--- NOTE | 2019-05-25 21:14 | NUR ---
UPON ENTERING ROOM, PT IS GETTING UP TO BR, PT STATES "YOU CAN GIVE ME MY MEDICINES WHILE I'M ON THE POT", ADM 2100 MEDS AND AMBIEN AT THIS TIME, INFORMED PT THAT I GOT THE PERCOCET 5 OUT INSTEAD OF THE PERCOCET 10, AND AYLIN I WILL BE BACK IN A FEW MINUTES TO ADM THE PERCOCET 10, PT VERBALIZES UNDERSTANDING
--- NOTE | 2019-05-25 21:23 | NUR ---
PERCOCET 5 RETURNED TO PYXIX, WITNESSED BY TATIANA JACINTO RN, PERCOCET 10 REMOVED AND ADM PO PER MD ORDERS, PT DENIES FURTHER NEEDS, PT'S MOM IN ROOM
--- NOTE | 2019-05-25 21:50 | NUR ---
PT BACK IN BED, PT AND PT'S MOM EATING ORANGE SHERBERT, TRASH REMOVED
--- NOTE | 2019-05-25 22:28 | NUR ---
PT RESTING WITH EYES CLOSED, RESP QUIET, NO DISTRESS NOTED, LEFT UNDISTURBED AT THIS TIME, PT'S MOM ASLEEP IN RECLINER
--- NOTE | 2019-05-25 22:45 | NUR ---
DR ELLINGTON ON L&D, RECEIVED VERBAL ORDERS TO CHANGE VS TO Q8H
--- NOTE | 2019-05-26 00:26 | NUR ---
JAVI RIGGS, LEATHER FINISHER NOTIFIED FOR LYSTEDA
--- NOTE | 2019-05-26 00:29 | NUR ---
PT RESTING WITH EYES CLOSED, RESP QUIET, NO DISTRESS NOTED, LEFT UNDISTURBED AT THIS TIME, PT'S MOM ASLEEP IN RECLINER
--- NOTE | 2019-05-26 01:30 | NUR ---
PT RESTING WITH EYES CLOSED, RESP QUIET, NO DISTRESS NOTED, LEFT UNDISTURBED AT THIS TIME, PT'S MOM ASLEEP IN RECLINER
--- NOTE | 2019-05-26 04:27 | NUR ---
PT UP AT SINK BRUSHING TEETH, PT STATES "I THINK I NEED A BREATHING TREATMENT SINCE I'VE BEEN IN THIS BED SO LONG", DENIES SOB, PT REPORTS USING I.S. INST, WILL OBTAIN VS AND ADM MOTRIN AFTER BRUSHING TEETH, WILL NOTIFY RESP FOR TREATMENT
--- NOTE | 2019-05-26 04:31 | NUR ---
RESP NOTIFIED FOR BREATHING TREATMENT
[2019-05-26 04:38] VITALS: BP 119/75
--- NOTE | 2019-05-26 04:38 | NUR ---
INFORMED PT THAT RESP WILL BE DOWN TO DO TREATMENT, PT REQUESTED THAT I GO OVER THE I.S. WITH HER, PT INST ON AND DEMONSTRATED I.S. WITH GOOD EFFORT, VS OBTAINED, ADM LATHAM PER MD ORDERS, SEE EMAR, PT DENIES FURTHER NEEDS, PT'S MOM AT BEDSIDE
--- NOTE | 2019-05-26 04:57 | NUR ---
PT AMB IN CUSTER, GAIT STEADY
--- NOTE | 2019-05-26 05:12 | NUR ---
PT BACK IN ROOM AT THIS TIME
--- NOTE | 2019-05-26 06:34 | NUR ---
PT AWAKE, C/O OF INC PAIN, ADM PAIN MED PER MD ORDERS, PT REPORTS HAVING A BM WITH NO DIFFICULTY, PT'S MOM GATHERING ALL BELONGINGS UP BECAUSE PT IS WANTING TO GO HOME TODAY, PT DENIES FURTHER NEEDS
[2019-05-26 07:30] VITALS: BP 90/54
--- NOTE | 2019-05-26 07:30 | NUR ---
VS OBTAINED PER ALEJANDRA LIU RN
--- NOTE | 2019-05-26 08:29 | NUR ---
PHARMACY NOTIFIED FOR LYSTEDA
--- NOTE | 2019-05-26 08:30 | NUR ---
PT UP IN SHOWER AT THIS TIME
[2019-05-26] MEDS ORDERED: PERCOCET 7.5/321 TAB PO ×2 (08:54→09:02)
--- NOTE | 2019-05-26 08:55 | NUR ---
PT OUT OF SHOWER, ASSESSMENT PER FLOW SHEET, BIKINI INC WITH STAPLE CDI WITH NO DRAINAGE NOTED, SHI PAD OVER INC FOR COMFORT AND MOISTURE CONTROL, PT REPORTS FLATUS, BM, AND VOIDING WITH NO DIFFICULTY, ADM 0900 MEDS AND VALIUM PER MD ORDERS, INFORMED PT THAT I DO NOT HAVE THE LYSTEDA YET, BUT WILL ADM IT WHEN RECEIVED, PT INFORMED THAT ALEJANDRA LIU RN IS WORKING ON DISCHARGE PAPER WORK, PT VERBALIZES UNDERSTANDING, PT REPORTS THAT SHE IS READY TO GO HOME
[2019-05-26] MEDS ORDERED: MOBIC7.5 MG PO ×3 (08:56→09:01)
[2019-05-26] MEDS ORDERED: VALIUM10 MG PO ×3 (08:56→09:00)
--- NOTE | 2019-05-26 09:25 | NUR ---
LYSTEDA STILL NOT RECEIVED FROM PHARMACY
--- NOTE | 2019-05-26 09:33 | NUR ---
DISCHARGE INST VERBAL AND WRITTEN GIVEN. SCRIPTS X3, MED REC AND DRUG DATA INFO SHEETS GIVEN. PT HEALTH SUMMARY GIVEN. SEE ALSO PT INST SIGNATURE PAGE FOR DISCHARGE FORMS. PT DENIES QUESTIONS. INFORMED TO CALL WHEN IS READY FOR DISCHARGE AND WILL CALL FOR W/C ESCORT. PT AGREES.
--- NOTE | 2019-05-26 09:42 | NUR ---
PT STATES SHE IS READY FOR DISCHARGE. TO AUTO VIA W/C PER ESCORT.
== END 2019-05-26 09:42 | disposition home or self-care (01) ==
LOC: D.WS 00:23 → D.MS 00:23 → OBSVTIME 00:23 → D.WS 05-24 12:30
PROVIDERS: Obstetrics & Gynecology; ADMIT Obstetrics & Gynecology; ATTEND Obstetrics & Gynecology
DX: N99.820 Postprocedural hemorrhage of a genitourinary system organ or structure following a genitourinary system procedure (principal); Y83.8 Other surgical procedures as the cause of abnormal reaction of the patient, or of later complication, without mention of misadventure at the time of the procedure; I10 Essential (primary) hypertension; K21.9 Gastro-esophageal reflux disease without esophagitis; F41.9 Anxiety disorder, unspecified